=== PATIENT | male | born 1970 | race Caucasian/White ===

== ENCOUNTER 2016-12-04 09:48 | Day surgery (SDC) | payer OTHER ==
[~2016-12-04] VITALS: Ht 180.3 cm; Wt 84.0 kg
[~2016-12-04 09:48] MED LIST: ALBU90AE IH; BECL8.7A5 INHALATION; Lactated Ringer's 1,000 ML IV ONE; OMEP20CA11 PO
[2016-12-04] MEDS ORDERED: Glycopyrrolate 0.2 MG/ML 1mL Inj ONE (09:49)
[2016-12-04] MEDS ORDERED: Propofol 10,000 mCg/mL 20 mL Inj ONE (09:49)
[2016-12-04] MEDS ORDERED: Ketamine 10 mg/mL 20 mL Inj ONE (09:49)
[2016-12-04 10:40] VITALS: BP 140/92; PULSE 78; RESP 14; O2SAT 95
--- NOTE | 2016-12-04 11:15 | PCM.HPANE ---
Patient Data Date of Service: Dec 04, 2016 Surgeon Admitting Provider: Attending Provider:Bozena Shi MD Primary Care Physician:Jennifer Justice Other Provider:Johana Paz Anesthesia Reason for Visit Colon Cancer Screening, Gerd Ht/WT & BMI Height (Feet): 5 Height (Inches): 11 Weight (Kilograms): 84 Body Mass Index 25.00 Allergies Coded Allergies: No Known Allergies (Verified Allergy, Unknown, 12/04/16) Past Anesthesia History Anesthesia History: Denies:: Abnormal Airway, Anesthesia Reactions, Difficult Intubation, Fam Anesthesia Reaction, Fam Malignant Hypertherm, Malignant Hyperthermia Diabetes History Hx Diabetes?: No MRSA MRSA: No Medications Hypertension Medication: No Home Meds Incl Beta Reynold: No Reported Medications Beclomethasone Dipropionate (Qvar)8.7 Gm Aer.w.adap1 Puff INHALATION BID #8.7 GM 12/03/16 Albuterol Sulfate (Proair Respiclick)90 Mcg Aer.pow.ba90 Mcg IH QID 12/03/16 Omeprazole 20 Mg Capsule.dr20 Mg PO Q2DAY Ref 0 12/03/16 History History of ENT Problems?: Yes HEENT History: Positive for:: Dysphagia Denies:: Abnormal Airway Difficult Intubation Hearing Problem Denture Type: Full- Upper Partial- Lower Teeth Condition: Missing Teeth Hx of Heart Problems?: Yes Cardiovascular History: Denies:: Chest Pain Pacemaker Other Cardiac History: no DE Hx of Respiratory Problem?: Yes Respiratory History: Positive for:: COPD Cough Hx Neurologic Problems?: No Neurological History: Denies:: CVA Seizures TIA Other Neurological Pertinent: calf & abdominal muscle twitches Hx of GI Problems?: Yes Gastrointestinal History: Positive for:: Gastroesphageal Reflux Hx of Problems?: No HX of Peritoneal Dialysis: No Skin History: Denies:: History Skin Disorders? Hx Musculoskeletal Problems?: Yes Other History/Comment muscle twitching & sore all the time Hx of Psycho/Social Problems?: Yes Psycho Social History: Positive for:: Anxiety Hx Depression Hx Surgeries?: Yes (Oral surgery) Hx Any Other Health Problems?: Yes History Blood Transfusions: Positive for:: Accept Blood Products? Denies:: Blood Transfusions Hx Diabetes: No Hx Alcohol Use: Yes (12 beers/day; marijuana occassional)Alcoholic Drinks Per Day: 12 beers daily, h/o DT's - not recentlyHx Substance Use: Yes (marijuana - smoking) Smoking Status: Heavy Tobacco Smoker Have You Smoked inLast 12 mo: YesApprox How Many Cigarettes/day: 1.5ppd Stop/Bang Treated for Sleep Apnea?: No Do You Have a CPAP Machine?: No S-Snoring: Do You Snore Loudly: Yes T-Tired: feel tired, fatigued: Yes O-Obsered: Observed not breath: No P-Blood Pressure: treated: No B- Body Mass Index > 35 kg/m2: No A- Age over 50: No N- Neck Large Circumference: No G- Gender Male: Yes PENG Total Score: 3 PENG Risk Assessment: Low Risk, <3 Yes Risk Assessment Category Category 1A: Patient has history of documented sleep apnea, and HAS NOT received any narcotic, sedative or anesthesia administration during this stay. Category 1B: Patient has history of documented sleep apnea, and HAS received any narcotic , sedative or anesthesia administration during this stay Category 2: Patient has SUSPECTED Obstructive Sleep Apnea, and HAS received any narcotic , sedative or anesthesia administration during this stay. Category 3: Patient has SUSPECTED Obstructive Sleep Apnea and HAS NOT received narcotic, sedative or anesthesia administration during this stay. Category 4: Outpatient in Procedural Areas with known sleep apnea or who screen positive for High Risk via the STOP/BANG questionnaire. Exam Exam Vital Signs Vital Signs Date Time Temp Pulse Resp B/P Pulse Ox O2 Delivery O2 Flow Rate FiO2 12/04/16 10:40 36.8 78 14 140/92 95 Room Air General Appearance: Alert, Oriented X3, Cooperative, No Acute Distress HEENT/AIRWAY: MP 3, Neck Movement (from), Mouth Opening (3), Other (tmd3) Lungs: Diminished (severely diminished) Heart: Exam Unremarkable, Regular Rate/Rhythm, Normal S1, Normal S2, No Murmurs /Rubs/Gallops Plan Impression Patient chart reviewed, patient interviewed and anesthestic plan with risks, benefits, and alternatives discussed, and informed consent obtained. NPO per Anesth. Guidelines: Yes ASA Physical Status: ASA3 Severe Disease Anesthetic Plan: TIVA Bene/Risks/Altern/Consents: Yes HP Complete Prior to Induction: Yes Christopher Aguirre MD Dec 04, 2016 11:15
[2016-12-04 12:06] VITALS: BP 116/88; PULSE 102; RESP 16; O2SAT 98
[2016-12-04 12:21] VITALS: BP 135/91; PULSE 90; RESP 17; O2SAT 98
--- NOTE | 2016-12-04 13:29 | ENDO ---
[address] [address] ENDOSCOPY PROCEDURE PATIENT: RADHA WALTERS : 1970 MR#: [id number] ADMIT: 12/04/2016 JOB ID: [id number] PROCEDURE: Esophagogastroduodenoscopy (EGD). INDICATION: Gastroesophageal reflux. ANESTHESIA: Patient's ASA classification, Mallampati score, and medications as per Dr. Christopher Aguirre's anesthesia report. INSTRUMENT USED: GIF H 180 J. PROCEDURE DETAILS: After informed consent was obtained the patient was brought into the GI suite, where he was placed on oxygen and monitored with continuous pulse oximeter, telemetry, and blood pressure monitoring. A time-out was performed, then he was placed in the left lateral decubitus position and medications were administered for sedation. A bite block was placed. The standard EGD scope was inserted through the bite block and advanced under direct visualization to the second portion of duodenum without difficulty. FINDINGS: 1. Normal appearing duodenal bulb, first and second portion. Multiple random biopsies were obtained. 2. Normal-appearing pylorus, antrum, and gastric body. 3. Retroflexed views in the gastric body revealed normal appearing cardia and fundus. 4. Multiple random biopsies were obtained throughout the antrum and body of the stomach. 5. The GE junction was at approximately 40 cm and was slightly irregular. Multiple random biopsies were obtained. The remainder of esophagus was otherwise unremarkable. IMPRESSION: Slightly irregular gastroesophageal junction, otherwise normal exam to second portion of the duodenum. RECOMMENDATIONS: 1. Await biopsy results. 2. Proceed to colonoscopy. PROCEDURE PERFORMED: Colonoscopy. INDICATION: Colon cancer screening and diarrhea. ANESTHESIA: Please see above for ASA classification, Mallampati score, and medications. INSTRUMENT USED: PCF H 180 AL. PREPARATION QUALITY: Fair. PROCEDURE DETAILS: After completion of the EGD exam, the patient was turned and a digital rectal exam was performed which was unremarkable. The colonoscope was then inserted into the rectum and advanced under direct visualization to the terminal ileum, which was identified by the presence of the ileocecal valve and villous appearing mucosa of the terminal ileum. Once the terminal ileum was reached, the colonoscope was withdrawn back into the rectum as the mucosa and lumen were examined. In the rectum, retroflexion was performed. Following retroflexion, the remaining air in the rectum was suctioned and the procedure was completed. FINDINGS: 1. Normal-appearing terminal ileum. Multiple random biopsies were obtained. 2. Normal-appearing colon mucosa from rectum to cecum. Multiple random biopsies were obtained throughout the entire colon. IMPRESSION: Normal colonoscopy to terminal ileum. RECOMMENDATIONS: 1. Await biopsy results. 2. Repeat colonoscopy in 10 years if biopsies are normal. 3. Follow up in GI Clinic in two to four weeks. COMPLICATIONS: None. ESTIMATED BLOOD LOSS: Less than 5 mL.
--- NOTE | 2016-12-05 12:05 | PCM.ANEP1 ---
Post Anesthesia PACU Phase 1 Assessment Date of Service: Dec 05, 2016 Anesthetic Administered: TIVA Level of Alertness: Awake, talking PEREZ's with Equal Strength: Yes Pain: No Pain Scale Score: 0 Nausea or Vomiting: No CV Function & Hydration Stable: Yes Airway Device: none Oxygen Delivery: Nasal Cannula Lungs: Diminished (severely diminished) PACU Phase 2 Assessment Complications: No Follow up Care: N/A Patient Instructions Provided: N/A Christopher Aguirre MD Dec 05, 2016 12:05
--- NOTE | 2016-12-05 17:55 | PATH ---
SURGICAL PATHOLOGY Attending Physician:Aaron Titus CASE STATUS: Signed Out PATIENT NAME: RADHA WALTERS PID: [id number] : 1970 DATE COLLECTED:12/04/2016 22:06 SPECIMEN: 1: Duodenum, Biopsy 2: Gastric, Biopsy 3: Esophagus, Biopsy 4: Ileum, Biopsy 5: Colon, Biopsy CLINICAL HISTORY: 1). DUODENAL BIOPSIES 2). RANDOM GASTRIC BIOPSIES - R/O H.PYLORI 3). DISTAL ESOPHAGUS BIOPSIES 4). TERMINAL ILEUM BIOPSIES 5). RANDOM COLON BIOPSIES FINAL DIAGNOSIS: 1.DUODENUM, BIOPSIES: DUODENAL MUCOSA WITH NO DIAGNOSTIC ABNORMALITY. Negative for active inflammation, features of sprue, dysplasia, and malignancy. 2.STOMACH, RANDOM BIOPSIES: BODY-TYPE MUCOSA WITH NO DIAGNOSTIC ABNORMALITY. Negative for Helicobacter organisms. Negative for intestinal metaplasia. Negative for dysplasia and malignancy. 3.DISTAL ESOPHAGUS, BIOPSIES: SQUAMOCOLUMNAR JUNCTIONAL MUCOSA WITH NO DIAGNOSTIC ABNORMALITY. Negative for intestinal metaplasia. Negative for dysplasia and malignancy. 4.TERMINAL ILEUM, BIOPSIES: SMALL BOWEL MUCOSA WITH NO DIAGNOSTIC ABNORMALITY. Negative for active inflammation, dysplasia, and malignancy. 5.RANDOM COLON, BIOPSIES: COLONIC MUCOSA WITH FOCAL MINIMAL NEUTROPHILIC CRYPTITIS (SEE COMMENT). Negative for granulomas, dysplasia, and malignancy. ICD10 R10.9 NOTE: 5. The random colon biopsies show focal minimal neutrophilic activity involving a few crypts in one of the biopsy fragments. There is no associated chronic or microscopic colitis. There is no evidence of ischemia. No obvious viral cytopathic effects or parasitic organisms are identified. The differential diagnosis includes bowel preparation effects, trauma/prolapse, diverticular disease-associated colitis, infection, and medication-related mucosal injury. Idiopathic inflammatory bowel disease cannot be completely excluded. GROSS DESCRIPTION: Received five formalin-filled containers each labeled with the patient' s name. 1. Received in formalin, labeled with the patient' s name and "duodenum biopsy", are two fragments of meza, soft tissue ranging from 0.2 x 0.1 x 0.1 cm to 0.2 x 0.1 x 0.1 cm. The fragments are totally submitted in cassette 1A. 2. Received in formalin, labeled with the patient' s name and "gastric body biopsy", are two fragments of meza, soft tissue ranging from 0.1 x 0.1 x 0.1 cm to 0.3 x 0.2 x 0.2 cm. The fragments are totally submitted in cassette 2A. 3. Received in formalin, labeled with the patient' s name and "distal esophagus biopsy", are four fragments of meza, soft tissue ranging from 0.1 x 0.1 x 0.1 cm to 0.2 x 0.1 x 0.1 cm. The fragments are totally submitted in cassette 3A. 4. Received in formalin, labeled with the patient' s name and "terminal ileum biopsy", are two fragments of meza, soft tissue ranging from 0.1 x 0.1 x 0.1 cm to 0.4 x 0.1 x 0.1 cm. The fragments are totally submitted in cassette 4A. 5. 5. Received in formalin, labeled with the patient' s name and "random colon biopsy", are multiple fragments of meza, soft tissue ranging from 0.1 x 0.1 x 0.1 cm to 0.3 x 0.2 x 0.1 cm. The fragments are totally submitted in cassette 5A. [id number]) MICRO DESCRIPTION: See diagnosis. ICD-9 CODES: CPT CODES: 1: 06094 2: 47871 3: 71380 4: 13800 5: 57562 Electronically Signed Out Carmen Robibns MD [facility] Pathology [facility] [address], [place] [address] Technical component performed at [facility], [facility] [address], [place], [address]
== END 2016-12-04 23:59 | disposition home or self-care (01) ==
LOC: END 09:48
PROVIDERS: ATTEND Internal Medicine Gastroenterology
DX: Z12.11 Encounter for screening for malignant neoplasm of colon (principal); R19.7 Diarrhea, unspecified; K21.9 Gastro-esophageal reflux disease without esophagitis; R13.10 Dysphagia, unspecified; F44.9 Dissociative and conversion disorder, unspecified; F41.9 Anxiety disorder, unspecified; F17.210 Nicotine dependence, cigarettes, uncomplicated; Z79.899 Other long term (current) drug therapy
CPT/HCPCS: 43239; 45380; 88305; J2250; J7120